=== PATIENT | female | born 1955 | race African-American/Black ===

== ENCOUNTER 2022-04-24 10:51 | Emergency (ER) | payer OTHER ==
[2022-04-24 11:01] VITALS: BP 164/94; PULSE 96; RESP 18; BMI 39.3
[2022-04-24 11:02] VITALS: TEMP 97.9
== END 2022-04-24 14:19 | disposition home or self-care (01) ==
LOC: JER 10:51
DX: N81.4 Uterovaginal prolapse, unspecified (principal); M54.50 Low back pain, unspecified; R10.9 Unspecified abdominal pain
CPT/HCPCS: 99281-25